=== PATIENT | male | born 1955 | race Caucasian/White ===

== ENCOUNTER 2023-07-15 09:55 | Outpatient (AMB) | payer BC, SELFPAY ==
--- NOTE | 2023-07-15 10:43 | A.SPINEOV_ITS ---
Intake Visit Reasons: cervical stenosis/second opinion Intake Note: Mr. Prieto is here today c/o severe neck pain. 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 HPI: This 67-year-old male had an injury on the ice on 04/03/2020 that resulted in neck pain and a right cervical radiculopathy. Apparently, he send always records to my office and was told that I did not do the procedure that he wanted and he had it done in [place]. He underwent an anterior diskectomy and fusion C5-6 C6-7 with anterior plating while he was told that it was going to be a stand-alone interbody device. Postoperatively, he complains of severe neck pain, posteriorly radiating to his head and an anterior feeling of constant traction in his throat. Unfortunately, the right arm radiculopathy did not improve either. He is using 2400 mg of gabapentin to alleviate his symptoms. He was seen by pain management for the postoperative symptoms as well. He is using Percocet, gabapentin, trazodone, Xanax On exam: He has a hoarse voice. The incision is well healed. He moves his neck carefully to avoid sudden pains. Postoperative imaging in the form of an MRI of the cervical spine and CT of the cervical spine shows a C5-C6, C6-7 anterior diskectomy and fusion. No signs of pseudoarthrosis. The exiting nerve roots seemed well decompressed. In summary, this patient developed severe neck pain post cervical fusion. In addition there seems to be symptoms related to the anterior plate. He wants to have the anterior plate removed. He is going to obtain the operative report and tell me which type of plate was used. He is scheduled for September 28 for anterior plate removal. He will get preoperative clearance from his primary care physician. I spent 50 minutes in his consult for history physical and discussing plan of care Daniel Ziegler MD, PhD Spine Fellowship Trained Neurosurgeon Director, [facility] Coding Level of Care Code New Pt Level 4 (94284) Diagnoses Status post cervical spinal fusion Z98.1 Dysphagia R13.10
== END 2023-07-15 11:53 | disposition home or self-care (01) ==
PROVIDERS: Referring Provider Internal Medicine; Visit Provider Neurological Surgery
DX: Z98.1 Arthrodesis status (principal); R13.10 Dysphagia, unspecified
CPT/HCPCS: 99204

== ENCOUNTER → 2023-07-15 09:55 | Outpatient (BNVA) | payer BC, SELFPAY | PROVIDERS: Visit Provider Neurological Surgery ==